=== PATIENT | female | born 1950 | race Caucasian/White ===

== ENCOUNTER 2025-06-10 12:15 | Observation (INO) | payer OTHER ==
[~2025-06-10] VITALS: Ht 154.9 cm; Wt 62.4 kg
--- NOTE | 2025-06-10 12:59 | ERN ---
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 Patient was placed on a loop recorder by engineering technical analyst. Per patient she noticed two days ago that the loop recorder was coming out. Allergies: Coded Allergies: codeine (Unverified Allergy, Unknown, 06/10/25) latex (Unverified Allergy, Unknown, 06/10/25) Past Medical History Past Medical History: Other Medical History Other: cardiac loop recorder, stents Past Surgical History: Hysterectomy, Other Surgical History Other: cardiac loop recorder, back sx ROS Dictation CONSTITUTIONAL: No chills, no fever, no weakness, no diaphoresis, no malaise. HEAD/FACE: No signs of trauma. EENT: No eye pain, no blurred vision, no tearing, no double vision, no ear pain, no ear discharge, no nose pain, no nasal congestion, no throat pain, no throat swelling, no mouth pain. RESPIRATORY: No cough, no orthopnea, no SOB, no stridor, no wheezing. CARDIOVASCULAR: No chest pain, no edema, no palpitations, no syncope. GASTROINTESTINAL/ABDOMINAL: No abdominal pain, no constipation, no diarrhea, no nausea, no vomiting. GENITOURINARY: No abnormal discharge, no dysuria, no frequent urination, no hematuria. No complaints of pain in the genitals. MUSCULOSKELETAL: No back pain, no gout, no joint pain, no joint swelling, no muscle pain, no muscle stiffness, no neck pain. INTEGUMENTARY: No change in color, no change in hair/nails, no dryness, no lesion, no lumps, no rash. NEUROLOGICAL/PSYCH: No anxiety, not depressed, no emotional problem, no headache, no numbness, no pre-existing deficit, no history of seizures, no tremors, no weakness. HEMATOLOGIC/LYMPHATIC: Not anemic, no history of blood clots, no apparent bleeding, no bruising, glands not swollen. All Systems Negative, Except as Noted. Physical Exam Physical Exam Dictation VITAL SIGNS: Reviewed. GENERAL APPEARANCE: Alert, oriented x3, no acute distress, obese. HEAD AND FACE: Non-traumatic. EYES: PERRL, pink conjunctivas, eyelid no trauma, anterior chamber clear. EARS: Pinnas intact and no signs of trauma or erythema. Ear canals clear and no discharge. TMs no erythema. NOSE: No discharge, no bleeding. OROPHARYNX: Mouth normal, teeth no caries, tongue pink. Pharynx clear, no erythema. Tonsils no exudates, no abscesses noted. Mucous membrane moist. NECK: Supple, non-tender, no thyromegaly, no masses, no JVD, no bruits. BREAST: Deferred. CHEST: No tenderness, no crepitus, no paradoxical movement, no retractions. LUNGS: Clear, well-ventilated, symmetric, no rales, no wheezing, no rhonchi, no stridor, good breath sounds bilaterally. HEART: Regular rate, regular rhythm, no murmur, no gallops. VASCULAR: No peripheral edema. ABDOMEN: Soft, positive bowel sounds, nondistended, no guarding, nontender, no rebound, no masses no hepatomegaly, no splenomegaly, no Boo's sign, no hernias. RECTAL: Deferred. GENITAL: Deferred. NEUROLOGICAL: Normal speech, gross motor function intact, gross sensory function intact. MUSCULOSKELETAL: Neck nontender, full range of motion, back nontender, full range of motion. EXTREMITIES: Nontender, full range of motion. SKIN: Color pink, dry, no turgor, no rash, loop recorder partially protruding from the left side of the chest LYMPHATICS: Deferred. Results Laboratory and Microbiology Lab and Micro Result Laboratory Tests Test 06/10/25 13:20 White Blood Count 5.2 K/uL (4.8-10.8) Red Blood Count 3.57 MIL/uL (4.00-5.50) L Hemoglobin 10.7 g/dL (12.0-16.0) L Hematocrit 33.4 % (36-48) L Mean Corpuscular Volume 93.6 fL (79-99) Mean Corpuscular Hemoglobin 30.0 pg (27.0-33.0) Mean Corpuscular Hemoglobin Concent 32.0 g/dL (32.0-36.0) Red Cell Distribution Width 13.9 % (11.0-15.5) Platelet Count 252 K/uL (130-400) Mean Platelet Volume 9.9 fL (7.5-10.5) Immature Granulocyte % (Auto) 0.2 % (0-1) Neutrophils (%) (Auto) 56.0 % (40.0-77.0) Lymphocytes (%) (Auto) 28.7 % (21.0-51.0) Monocytes (%) (Auto) 10.8 % (3.0-13.0) Eosinophils (%) (Auto) 3.5 % (0.0-8.0) Basophils (%) (Auto) 0.8 % (0.0-5.0) Neutrophils # (Auto) 2.9 K/uL (1.8-7.7) Lymphocytes # (Auto) 1.5 K/uL (1.0-4.8) Monocytes # (Auto) 0.6 K/uL (0.1-1.0) Eosinophils # (Auto) 0.18 K/uL (0.00-0.70) Basophils # (Auto) 0.04 K/uL (0.00-0.20) Absolute Immature Granulocyte (auto 0.01 K/uL (0-1) Nucleated Red Blood Cells 0.0 % (0.0-0.19) Sodium Level 140 mmol/L (136-145) Potassium Level 4.1 mmol/L (3.5-5.1) Chloride Level 106 mmol/L (101-111) Carbon Dioxide Level 26 mmol/L (21-32) Blood Urea Nitrogen 27 mg/dL (7-18) H Creatinine 0.7 mg/dL (0.5-1.0) Glomerular Filtration Rate Calc 90 mL/min (>90) Random Glucose 84 mg/dL (70-105) Total Calcium 8.9 mg/dL (8.5-10.1) Labs Reviewed?: Yes EKG/XRAY/US/CT/MRI X-RAY Comment [id number] [address] IMAGING REPORT Signed PATIENT: CRISTAL NEVILLE MR#: [id number] : 1950 SEX: F AGE: 74 LOCATION: ED ORDER 1250 STATUS: REG ER REPORT#: [id number] SERVICE [id number] REASON: cp ORDERING PHYSICIAN: ALEXNADER RUEDA MD PROCEDURE: CXR1VW - CHEST 1VW EXAM: CR Chest, 1 View. CLINICAL HISTORY: cp COMPARISON: None provided. FINDINGS: LUNGS: The lungs show no infiltrate or other acute finding. Mild bibasilar airspace disease may reflect atelectasis. PLEURAL SPACES: No evidence of pleural effusion or pneumothorax. MEDIASTINUM: Rhythm monitoring device overlies the cardiac silhouette. The cardiomediastinal silhouette is within normal limits. Presumed prior coronary artery stenting. BONES: No aggressive appearing osseous lesion seen. IMPRESSION: 1. No acute cardiopulmonary findings. /[place] DICTATED BY: FIONA LYNCH Jr., MD DATE: 06/10/251419 ELECTRONICALLY SIGNED BY: FIONA LYNCH Jr., MD DATE: 06/10/251419 [facility] MDM: Differential diagnosis: Loop recorder problem, loop recurrent protruding Rationale: Tests considered and ordered secondary to shared decision making include: labs, ECG and radiology Previous outside records reviewed: Old ER visits. Risk of complication and/or morbidity or mortality of patient management: None Medications-Per medication reconciliation Need for hospitalization: Patient does meet criteria for hospitalization. Need for emergency major/minor surgery: No There are no social concerns with this patient. Prescription drug management Prescriptions will include symptomatic care Patient's prior external medical records from other ER visits were reviewed by me as indicated. Prior testing and results from previous visits were reviewed. Prior tests were taken into account with medical decision making and resource utilization, independent historian/historians were used to obtain complete medical history. I independently interpreted the test that were performed, results were reviewed by me and considered findings on radiology if ordered. Medical management and examination interpretation discussions were had by me with other qualified healthcare professionals as indicated for the patient's care. Patient will be admitted under the care of hospitalist group for ongoing evaluation and management. Ready [employer] Department Manager Dr. Chopra that has consulted ED Course Orders Procedure Category Date Status Time Cbc With Differential LAB 06/10/25 Complete 12:47 Chest 1vw RAD 06/10/25 Resulted 12:47 12 Lead Ekg Tracing- EKG 06/10/25 Logged Technical 12:47 Troponin I High LAB 06/10/25 In Process Sensitivity 12:47 Basic Metabolic Panel LAB 06/10/25 Complete 12:47 Anaerobic Culture ISA 06/10/25 In Process 12:47 Aerobic Culture ISA 06/10/25 In Process 12:47 Lidocaine Hcl 1% 20ml PHA 06/10/25 Complete Vial (Lidocaine Hc 12:49 Ceftriaxone 1g Vial PHA 06/10/25 Complete (Rocephine 1g Inj) 13:30 Current Medications Medications (Trade) Dose Ordered Sig/Mariah Route PRN Reason Start Time Stop Time Status Last Admin Dose Admin Ceftriaxone Sodium (ROCEphine 1G INJ) 1 gm ONCE ONCE IVPB 06/10/25 13:30 06/10/25 13:31 DC 06/10/25 13:34 Lidocaine HCl (Lidocaine HCl 1% 20ml Vial) 20 ml ONCE STAT INJ 06/10/25 12:49 06/10/25 12:54 DC Vital Signs Date Time Temp Pulse Resp B/P (MAP) Pulse Ox O2 Delivery O2 Flow Rate FiO2 06/10/25 13:29 98.6 67 12 133/78 98 Room Air* 0 21 06/10/25 12:26 97.9 66 16 128/87 98 Room Air* 0 21 06/10/25 12:24 97.9 66 16 128/87 98 Room Air 0 Procedure Dictation And a sterile environment- a loop recorder present on the left side of the chest partially protruding was cleaned and anesthetized using lidocaine 1%. 5 mL were used. Good anesthesia achieved. Gently retracting of the loop recorder was carried out success. Wound was cultured and packed with iodoform gauze. DX & DISP Disposition: Inpatient Decision to Admit Time: 13:38 Departure Impression: Primary Impression: Encounter for loop recorder check Condition: Stable Referrals: SELF,REFERRAL (PCP) ALEXANDER RUEDA MD Jun 10, 2025 12:58
--- NOTE | 2025-06-10 13:21 | HMCIMG ---
EXAM: CR Chest, 1 View. CLINICAL HISTORY: cp COMPARISON: None provided. FINDINGS: LUNGS: The lungs show no infiltrate or other acute finding. Mild bibasilar airspace disease may reflect atelectasis. PLEURAL SPACES: No evidence of pleural effusion or pneumothorax. MEDIASTINUM: Rhythm monitoring device overlies the cardiac silhouette. The cardiomediastinal silhouette is within normal limits. Presumed prior coronary artery stenting. BONES: No aggressive appearing osseous lesion seen. IMPRESSION: 1. No acute cardiopulmonary findings. /[place]
[2025-06-10 13:29] LABS: IMMATURE GRANULOCYTE ABSOLUTE 0.01 K/uL (0-1); NUCLEATED RED BLOOD CELLS 0.0 % (0.0-0.19); PLATELET COUNT (AUTO) 252 K/uL (130-400); RED BLOOD CELL COUNT(AUTO) 3.57 MIL/uL (4.00-5.50); RED CELL DISTRIBUTION WIDTH 13.9 % (11.0-15.5); WHITE BLOOD COUNT (AUTO) 5.2 K/uL (4.8-10.8)
--- NOTE | 2025-06-10 13:30 | NUR ---
1310 DR. RUEDA AT BEDSIDE, REMOVAL OF LOOP RECORDER PT TOLERATED WELL, NO C/O PAIN TO SITE NO DISTRESS, VITALS WNL. PT GIVEN LOOP RECORDER DEVICE, PLACED IN STERILE CONTAINER.
[2025-06-10 13:35] LABS: CREATININE 0.7 mg/dL (0.5-1.0); GLOMERULAR FILTR. RATE CALC 90.0 mL/min (>90); GLUCOSE,RANDOM 84.0 mg/dL (70-105); SODIUM SERUM 140.0 mmol/L (136-145); UREA NITROGEN, BLOOD 27.0 mg/dL (7-18)
[2025-06-10] MEDS: LIDOCAINE HCL 1% 20 ML VIAL INJ STA (13:41)
--- NOTE | 2025-06-10 13:44 | CONS ---
Cardiology Consult Note Cardiology Attending: Ragini Osborn Consulting Physician: ED physician Date of Service: 06/10/25 Reason for Consult: Protruding loop recorder HPI: This is a 74-year-old female with a past medical history of CAD status post PCI to the LAD done in 2021, coronary CTA which identified a patent stent in the proximal LAD, nonobstructive CAD in the proximal LCx, paroxysmal atrial fibrilla tion status post ablation done in 1998, normal left ventricle systolic function (LVEF 55-60%), HLP, HTN, and hypothyroidism who presents with a loop recorder that is protruding through her skin and is open to air. The patient states that she underwent loop recorder placement on 04/05/2025 and that the surgical site never truly heal. She was advised to continue wearing a Steri-Strip on top of the incision site in order to allow to heal. She removed the Steri-Strips on Friday and noticed that the loop recorder was protruding through her skin. She subsequently called our office and was advised to come to the hospital for further evaluation and treatment. She complains of mild pain centered around the loop recorder site. She denies fever, chills, headache, dizziness, cardiac chest pain, chest pressure, palpitations, shortness or breath, PND, orthopnea, abdominal pain, or weight gain. PMH: Listed above PSH: Tonsillectomy, breast implants, weight loss surgery, back surgery FH: Significant for CAD, HTN, and DMII. SH: Denies alcohol, tobacco, or illicit drug use. Medications: Folic acid 1 mg daily, aspirin 81 mg daily, Farxiga 10 mg daily, Ezetimibe 10 mg daily, amlodipine 2.5 mg daily, levothyroxine 125 mcg daily, pantoprazole 40 mg daily, clopidogrel 75 mg daily, metoprolol succinate 25 mg daily Allergies: Coded Allergies: codeine (Unverified Allergy, Unknown, 06/10/25) latex (Unverified Allergy, Unknown, 06/10/25) Review of systems: General: Denies fever or chills HEENT: Denies changes in vision, earache or sore throat Neck: Denies pain or stiffness Cardio: As per the HPI Pulm: Denies SOB, coughing or wheezing GI: Denies abdominal pain, nausea, vomiting, diarrhea, or constipation. MSK: Denies muscle or back pain. Heme: Denies anemia, easy bruising, or bleeding. Neuro: Denies headache, dizziness, or syncope. Skin: As per the HPI. Psych: Denies anxiety, depression, or suicide ideations. Physical Exam: Vital Signs Date Time Temp Pulse Resp B/P (MAP) Pulse Ox O2 Delivery O2 Flow Rate FiO2 06/10/25 12:26 97.9 66 16 128/87 98 Room Air* 0 21 General: Alert and oriented x 3. NAD HEENT: NC/AT. Oral mucosa is moist. Neck: No masses, JVD, or carotid bruits Lungs: NRD. SCM. B/L CTA. No wheezing, rales or rhonchi. Cardio: Rate @ 66bpm. Normal S1 and S2. +S4. PMI was not displaced. Abdomen: Soft. NT. ND. Normal active bowel sounds x 4 quadrants. Extremities: No edema, clubbing or cyanosis. +2 pulses noted throughout. Neuro: CN II-XII were grossly intact. No focal deficits. Skin: There is a loop recorder, that is left of the midline and is protruding through the epidermis and is exposed to air. There is mild erythema around the loop recorder Labs: Laboratory Tests Test 06/10/25 13:20 Range/Units White Blood Count 5.2 4.8-10.8 K/uL Red Blood Count 3.57 L 4.00-5.50 MIL/uL Hemoglobin 10.7 L 12.0-16.0 g/dL Hematocrit 33.4 L 36-48 % Mean Corpuscular Volume 93.6 79-99 fL Mean Corpuscular Hemoglobin 30.0 27.0-33.0 pg Mean Corpuscular Hemoglobin Concent 32.0 32.0-36.0 g/dL Red Cell Distribution Width 13.9 11.0-15.5 % Platelet Count 252 130-400 K/uL Mean Platelet Volume 9.9 7.5-10.5 fL Immature Granulocyte % (Auto) 0.2 0-1 % Neutrophils (%) (Auto) 56.0 40.0-77.0 % Lymphocytes (%) (Auto) 28.7 21.0-51.0 % Monocytes (%) (Auto) 10.8 3.0-13.0 % Eosinophils (%) (Auto) 3.5 0.0-8.0 % Basophils (%) (Auto) 0.8 0.0-5.0 % Neutrophils # (Auto) 2.9 1.8-7.7 K/uL Lymphocytes # (Auto) 1.5 1.0-4.8 K/uL Monocytes # (Auto) 0.6 0.1-1.0 K/uL Eosinophils # (Auto) 0.18 0.00-0.70 K/uL Basophils # (Auto) 0.04 0.00-0.20 K/uL Absolute Immature Granulocyte (auto 0.01 0-1 K/uL Nucleated Red Blood Cells 0.0 0.0-0.19 % Assessment: 1. Wound dehiscence 2. Protruding loop recorder 3. CAD status post PCI to the LAD done in 2021 4. Coronary CTA which identified a patent stent in the proximal LAD, nonobstructive CAD in the proximal LCx 5. Paroxysmal atrial fibrillation status post ablation done in 1998 6. Normal left ventricle systolic function (LVEF 55-60%) 7. HLP 8. HTN 9. Hypothyroidism Plan: 1. Wound adhesions -Stable -PE: There is a loop recorder, that is left of the midline and is protruding through the epidermis and is exposed to air. There is mild erythema around the loop recorder -Recommend bedside removal of the loop recorder. The case was discussed with Dr. Ross, ER physician and he will remove the device at the bedside. -Once the device has been removed we recommend obtaining cultures from the pocket, obtaining blood cultures/ESR/CRP levels, and starting the patient on broad-spectrum antibiotics 2. CAD status post PCI to the LAD done in 2021 -stable -the patient denies cardiac chest pain, chest pressure, palpitations, or shortness of breath -the above-mentioned findings indicate clinical stability, as a result the patient will continue on metoprolol succinate 25 mg daily, aspirin 81 mg daily, clopidogrel 75 mg daily, ezetimibe 10 mg daily 3. HTN -stable -continue amlodipine 2.5 mg daily. Likely discharge within the next 24 hours. RAGINI OSBORN MD Jun 10, 2025 13:44
--- NOTE | 2025-06-10 14:00 | NUR ---
HOSPITALIST AT BEDSIDE
[2025-06-10] MEDS ORDERED: NITROGLYCERIN 0.4 MG SL TAB SL PRN (14:30)
[2025-06-10] MEDS ORDERED: LACTULOSE 20 GM/30 ML UDCUP PO PRN (14:30)
--- NOTE | 2025-06-10 14:32 | HP ---
[facility] HISTORY [facility] PHYSICAL Date of Service: Jun 10, 2025 Time of Service: 14:32 HISTORY OF PRESENT ILLNESS: The patient is a 74-year-old female with a history of hypertension, hypercholesterolemia, hypothyroidism, and CAD s/p angioplasty in 2021 presented to the emergency department for evaluation of a dislodged loop recorder. The loop recorder was implanted on April 05, [address] Thanh Oshea for monitoring intermittent chest pain radiating to both sides of her neck. The patient reports that the surgical site never fully healed. Yesterday, she removed the steri-strip from the area, looked herself in the mirror and noticed that the device appeared to be protruding through the skin. She is unsure how long it had been dislodged. This morning, while gardening, she experienced sweating around the site along with a burning sensation. She contacted the [facility], and her rim fire priming operator expressed concern for possible infection and advised her to go to the emergency department for evaluation and potential device removal. On presentation, the patients vital signs were stable and unremarkable. Initial laboratory studies were within normal limits. The emergency department physician successfully removed the loop recorder, obtained wound cultures, and applied a sterile dressing. She denies fever, chills, headache, dizziness, cardiac chest pain, chest pressure, palpitations, shortness or breath, PND, orthopnea, abdominal pain, or weight gain. The patient was also evaluated by rim fire priming operator Dr. Osborn in the ED. Dr. Osborn recommended that the patient be observed closely for any signs of infection at the loop recorder site. Wound site was inspected and findings are listed below. Wound cultures were obtained for both aerobic and anaerobic organisms. The patient received a dose of intravenous Rocephin in the emergency department. She will be admitted for continued monitoring of the affected site following device protrusion. REVIEW OF SYSTEMS CONSTITUTIONAL: Denies fevers, chills, or night sweats. No unintentional weight loss reported. NEUROLOGICAL: Denies headache, amaurosis fugax, motor weakness, sensory deficit, vertigo/spinning sensation, gait abnormalities, or tremors. ENT: No hearing loss, otalgia, otorrhea, rhinitis, rhinorrhea, hoarseness, or sore throat. CARDIOVASCULAR: Denies any exertional angina, dyspnea on exertion, orthopnea, paroxysmal nocturnal dyspnea, palpitations, life-threatening arrhythmias, claudication. PULMONARY: Denies any shortness of breath, cough, phlegm/sputum, hemoptysis, pleuritic chest pain. SLEEP: Denies morning headaches, daytime somnolence or napping. Denies difficulty falling asleep, staying asleep, waking from sleep. Denies knowledge of snoring. GASTROINTESTINAL: Denies any type of dysphagia to either liquids or solids. Denies nausea, vomiting, pyrosis, early satiety, abdominal pain, diarrhea, constipation, or changes in stool consistency or caliber. Denies coffee-ground emesis, hematemesis, hematochezia, or melanotic stools. GENITOURINARY: Denies frequency, urgency, nocturia, hematuria or incontinence (Storage/Irritative symptoms.) Low urinary stream, straining to void, urinary intermittency or hesitancy, splitting of the voiding stream, terminal dribbling. ENDOCRINOLOGIC: Denies polyuria, polydipsia, polyphagia or heat/cold intolerances. HEMATOLOGIC: Denies thrombophilia/previous clots, or coagulopathy/bleeding disorders. ONCOLOGIC: Denies personal history of malignancy. DERMATOLOGIC: Denies rashes or pruritus. PSYCHIATRIC: Denies any suicidal or homicidal ideation. Denies hallucinations. PAST MEDICAL HISTORY: Hypertension Hypercholesterolemia Hypothyroidism CAD s/p PCI in 2021 PAST SURGICAL HISTORY: H/o back surgery 3 years ago Tonsillectomy Hysterectomy Hernia repair Weight loss surgery Breast implant surgery PAST SOCIAL HISTORY: Denies smoking, Drinks alcohol socially FAMILY HISTORY: Brother- H/o aortic aneurysm Coded Allergies: codeine (Unverified Allergy, Unknown, 06/10/25) latex (Unverified Allergy, Unknown, 06/10/25) PHYSICAL EXAM GENERAL APPEARANCE: The patient is awake, alert, and oriented, in no acute cardiopulmonary distress. NEUROLOGICAL: Cranial nerves II-XII grossly intact. Motor is 5/5 in bilateral upper and lower extremities proximal to distal. No sensory deficits. HEENT: Face is symmetric. Pupils are equal and reactive. Extraocular movements are intact. NECK: Supple. No JVD. No thyromegaly. No submental, submandibular, pre-/post auricular, occipital or supraclavicular lymphadenopathy. CHEST: Normal chest expansion. No Telemetry. LUNGS: Absence of any rales, rhonchi or any wheezing. CARDIOVASCULAR: Regular. S1 and S2 normal. No appreciable rubs, murmurs or gallops. ABDOMEN: Soft, nontender, and nondistended. There is no rebound, voluntary guarding, or rigidity. : Deferred. No Doe. EXTREMITIES: Non-edematous and not cyanotic. No clubbing. Good capillary refill. Skin/Wound: Over the anterior chest, there is a small wound at the site of recent loop recorder placement. Site appears clean, with no significant erythema, purulent drainage, or fluctuance. Mild surrounding tenderness. No systemic signs of infection noted at this time. Vital Sign (Last 24 Hours) 06/10/25 13:29 Temp 98.6 Pulse 67 Resp 12 B/P (MAP) 133/78 Pulse Ox 98 O2 Delivery Room Air* O2 Flow Rate 0 FiO2 21 LABS: Laboratory: Test 06/10/25 13:20 Range/Units White Blood Count 5.2 4.8-10.8 K/uL Red Blood Count 3.57 L 4.00-5.50 MIL/uL Hemoglobin 10.7 L 12.0-16.0 g/dL Hematocrit 33.4 L 36-48 % Mean Corpuscular Volume 93.6 79-99 fL Mean Corpuscular Hemoglobin 30.0 27.0-33.0 pg Mean Corpuscular Hemoglobin Concent 32.0 32.0-36.0 g/dL Red Cell Distribution Width 13.9 11.0-15.5 % Platelet Count 252 130-400 K/uL Mean Platelet Volume 9.9 7.5-10.5 fL Immature Granulocyte % (Auto) 0.2 0-1 % Neutrophils (%) (Auto) 56.0 40.0-77.0 % Lymphocytes (%) (Auto) 28.7 21.0-51.0 % Monocytes (%) (Auto) 10.8 3.0-13.0 % Eosinophils (%) (Auto) 3.5 0.0-8.0 % Basophils (%) (Auto) 0.8 0.0-5.0 % Neutrophils # (Auto) 2.9 1.8-7.7 K/uL Lymphocytes # (Auto) 1.5 1.0-4.8 K/uL Monocytes # (Auto) 0.6 0.1-1.0 K/uL Eosinophils # (Auto) 0.18 0.00-0.70 K/uL Basophils # (Auto) 0.04 0.00-0.20 K/uL Absolute Immature Granulocyte (auto 0.01 0-1 K/uL Nucleated Red Blood Cells 0.0 0.0-0.19 % Sodium Level 140 136-145 mmol/L Potassium Level 4.1 3.5-5.1 mmol/L Chloride Level 106 101-111 mmol/L Carbon Dioxide Level 26 21-32 mmol/L Blood Urea Nitrogen 27 H 7-18 mg/dL Creatinine 0.7 0.5-1.0 mg/dL Glomerular Filtration Rate Calc 90 >90 mL/min Random Glucose 84 70-105 mg/dL Total Calcium 8.9 8.5-10.1 mg/dL Troponin I High Sensitivity 5 4-50 ng/L Current Medications Medications (Trade) Dose Ordered Sig/Mariah Route PRN Reason Start Time Stop Time Status Last Admin Dose Admin Acetaminophen (TYLenol 325MG TAB) 650 mg Q4H PRN PO MILD PAIN (1-3) 06/10/25 14:30 07/10/25 14:29 Acetaminophen (TYLenol 325MG TAB) 650 mg Q6H PRN PO TEMPERATURE GREATER THAN 101.5 06/10/25 14:30 07/10/25 14:29 Doxycycline Hyclate (Doxycycline Hyclate) 100 mg BID PO 06/10/25 14:30 06/20/25 14:29 UNV Famotidine (Pepcid 20mg Tab) 20 mg BID PO 06/10/25 21:00 07/10/25 20:59 Lactulose (Constulose 20gm/ 30ml Udcup) 20 gm BID PRN PO CONSTIPATION 06/10/25 14:30 07/10/25 14:29 Lidocaine HCl (Lidocaine HCl 1% 20ml Vial) 20 ml ONCE STAT INJ 06/10/25 12:49 06/10/25 12:54 DC 06/10/25 13:41 20 ML Nitroglycerin (Nitrostat) 0.4 mg PROTOCOL PRN SL CHEST PAIN 06/10/25 14:30 07/10/25 14:29 DIAGNOSTICS / RADIOLOGY: [facility] [address] [place] [address] IMAGING REPORT Signed PATIENT: CRISTAL NEVILLE MR#: [id number] : 1950 SEX: F AGE: 74 LOCATION: ED ORDER 125 STATUS: REG ER REPORT#: [id number] SERVICE 1247 REASON: cp ORDERING PHYSICIAN: ALEXANDER RUEDA MD PROCEDURE: CXR1VW - CHEST 1VW EXAM: CR Chest, 1 View. CLINICAL HISTORY: cp COMPARISON: None provided. FINDINGS: LUNGS: The lungs show no infiltrate or other acute finding. Mild bibasilar airspace disease may reflect atelectasis. PLEURAL SPACES: No evidence of pleural effusion or pneumothorax. MEDIASTINUM: Rhythm monitoring device overlies the cardiac silhouette. The cardiomediastinal silhouette is within normal limits. Presumed prior coronary artery stenting. BONES: No aggressive appearing osseous lesion seen. IMPRESSION: 1. No acute cardiopulmonary findings. /[place] DICTATED BY: FIONA LYNCH Jr., MD DATE: 06/10/251419 ELECTRONICALLY SIGNED BY: FIONA LYNCH Jr., MD DATE: 06/10/251419 ASSESSMENT: Wound dehiscence POA Dislodged and protruding loop recorder POA s/p removal CAD S/p coronary angioplasty in 2021 POA Hypertension POA Hypothyroidism POA Hypercholesterolemia POA PLAN: The patient will be admitted on medical surgical floor. Wound dehiscence POA Dislodged and protruding loop recorder POA s/p removal * Start doxycycline 100 mg PO BID for empirical MRSA coverage. * Continue to monitor for signs of local or systemic infection. * Await results of aerobic and anaerobic wound cultures to guide further antibiotic management. * Wound care team consulted for inpatient dressing recommendations and discharge planning for wound care. * Continue daily assessment of wound site during hospitalization. CAD S/p coronary angioplasty in 2021 POA * The patient denies any cardiac symptoms. Continue with Aspirin 81 mg and Clopidogrel 75 mg daily. Hypertension POA * Continue with Amlodipine 2.5 and Metoprolol 25 mg daily. Home medications were reconciled and resumed. Replace electrolytes per protocol PRN medications for fever, pain GI Prophylaxis: Famotidine 20 mg PO BID DVT Prophylaxis: SCDs today, if tomorrow after assessment the patient requires longer hospitalization, can be started with heparin/Lovenox. AM Labs: CBC, BMP The patient will be closely monitored for any signs of developing infection at the loop recorder site. Wound culture results are pending. If she remains clinically stable, she may be discharged within 2448 hours with a course of oral antibiotics. ADVANCED CARE PLANNING 1. Which of the following were discussed? Hospice Care - Yes / No Therapeutic options - Yes / No Advance Directives - Yes / No 2. Discussed with who? The patient 3. Voluntary nature of this service was explained to the patient? Yes / No 4. Amount of time spent - ___20 minutes____ 5. Reviewed by Physician? Yes / No ATTESTATION BY PHYSICIAN I have seen and examined the patient. I reviewed the documentation, medical decision making, and treatment plan as noted by the resident provider above. I agree with the findings and plan of care. Brandon Reyna MD, MANALI MD Jun 10, 2025 14:32
--- NOTE | 2025-06-10 14:43 | NUR ---
CALLED WOUND CARE OFFICE FOR CONSULT NO ANSWER.
[2025-06-10] MEDS ORDERED: PANT40TA54 PO (14:53)
[2025-06-10] MEDS ORDERED: DAPA10TA PO (14:53)
[2025-06-10] MEDS ORDERED: EZET10TA80 PO (14:53)
[2025-06-10] MEDS ORDERED: CLOP75TA32 PO (14:53)
[2025-06-10] MEDS ORDERED: AMLO2.5T4 PO (14:53)
[2025-06-10] MEDS ORDERED: METO-408 PO (14:53)
[2025-06-10] MEDS ORDERED: ASPI-1443 PO (14:53)
[2025-06-10] MEDS ORDERED: LEVO112C5 PO (14:53)
[2025-06-10] MEDS: DOXYCYCLINE HYCLATE 100 MG TABLET PO SCH (14:57)
--- NOTE | 2025-06-10 15:05 | NUR ---
CHARGE NURSE RECEIVED REPORT FROM HUMA SULTANA. REPORT PASSED ON TO ME FROM CHARGE NURSE. PATIENT ARRIVED TO THE UNIT NO SIGNS AND SYMPTOMS OF DISTRESS NOTED. WOUND CARE CENTER PAGED BUT NO ANSWER.
[2025-06-10 15:30] VITALS: BP 124/76; PULSE 80; RESP 21; TEMP 97.8; O2SAT 99
[2025-06-10 15:31] VITALS: O2SAT 99
[2025-06-10 20:00] VITALS: BP 129/84; PULSE 90; RESP 20; TEMP 98.2
[2025-06-10 20:50] VITALS: O2SAT 97
[2025-06-10] MEDS: FAMOTIDINE 20MG TAB PO SCH (20:55)
[2025-06-10] MEDS ORDERED: TRAM50TA4 PO (21:25)
[2025-06-10] MEDS ORDERED: PoTASSium chloRIDE 20MEQ ER 20 MEQ ERTAB PO PRN (23:00)
[2025-06-10] MEDS ORDERED: PoTASSium chl 10% ELIXIR 20MEQ 20 MEQ/15 ML UDCUP PO PRN (23:00)
[2025-06-11] VITALS: BP 134/86; PULSE 66; RESP 20; TEMP 97.6
[2025-06-11 04:00] VITALS: BP 115/70; PULSE 63; RESP 20; TEMP 98.1
[2025-06-11 05:19] LABS: NUCLEATED RED BLOOD CELLS 0.0 % (0.0-0.19); PLATELET COUNT (AUTO) 223.0 K/uL (130-400); RED BLOOD CELL COUNT(AUTO) 3.55 MIL/uL (4.00-5.50); RED CELL DISTRIBUTION WIDTH 13.7 % (11.0-15.5); WHITE BLOOD COUNT (AUTO) 4.0 K/uL (4.8-10.8)
[2025-06-11 05:33] LABS: CREATININE 0.9 mg/dL (0.5-1.0); GLOMERULAR FILTR. RATE CALC 67.0 mL/min (>90); GLUCOSE,RANDOM 81.0 mg/dL (70-105); SODIUM SERUM 137.0 mmol/L (136-145); UREA NITROGEN, BLOOD 22.0 mg/dL (7-18)
[2025-06-11 08:00] VITALS: BP 135/76; PULSE 59; RESP 18; TEMP 97.9
[2025-06-11] MEDS: EZETIMIBE 10 MG TAB PO SCH (09:08)
[2025-06-11] MEDS: amLODIPine 2.5 MG TAB PO SCH (09:09)
[2025-06-11] MEDS: ASPIRIN 81 MG EC TAB PO SCH (09:09)
--- NOTE | 2025-06-11 09:20 | NUR ---
IV ACCESS INFILTRATED. PATIENT DOES NOT WANT ANOTHER IV ACCESS. PATIENT STATED "I'M GOING HOME TODAY WHETHER THE DOCTORS LIKE IT OR NOT." EDUCATED THE PATIENT ON THE IMPORTANCE OF HAVING AN IV ACCESS IN CASE OF EMERGENCY SITUATIONS. PATIENT STILL REFUSES ACCESS. REFUSAL FORM SIGNED AND IN THE CHART.
[2025-06-11] MEDS ORDERED: ZOSYN 3.375GM +NS 50ML IVPB SCH (10:00)
--- NOTE | 2025-06-11 11:03 | EKG ---
[facility] Test Date: 2025-06-10 Test Time: 13:32:32 Pat Name: CRISTAL NEVILLE Department: [facility] Room: 415 1 Gender: F Log Peeler: [id number] : 1950 Requested By: ALEXANDER RUEDA Order Number: [id number] Reading MD: Nav Osborn Measurements Intervals [place] Rate: 63 P: 51 [place]: 198 QRS: -28 QRSD: 100 T: 30 QT: 441 QTc: 453 Interpretive Statements Sinus rhythm LVH with secondary repolarization abnormality Lateral infarct, age indeterminate No previous ECG available for comparison Electronically Signed On 06-12-2025 23:58:49 CDT by Nav Osborn Please click the below link to view image of tracing.
[2025-06-11 12:00] VITALS: BP 121/77; PULSE 55; RESP 18; TEMP 97.6
[2025-06-11] MEDS ORDERED: DOXYCYCLINE HYCLATE 100 MG TABLET PO SCH (12:00)
--- NOTE | 2025-06-11 13:20 | CONS ---
CONSULTATION NOTE Date of Service: Jun 11, 2025 Reason for Consultation: Open surgical wound on the anterior chest Requesting Physician: Dr. Osborn HISTORY OF PRESENT ILLNESS: [ The patient is a 74-year-old female with a history of hypertension, hyperchol esterolemia, hypothyroidism, and CAD s/p angioplasty in 2021 presented to the emergency department for evaluation of a dislodged loop recorder. The loop recorder was implanted on April 05, [address] Thanh Oshea for monitoring intermittent chest pain radiating to both sides of her neck. The patient reports that the surgical site never fully healed. Yesterday, she removed the steri-strip from the area, looked herself in the mirror and noticed that the device appeared to be protruding through the skin. She is unsure how long it had been dislodged. This morning, while gardening, she experienced sweating around the site along with a burning sensation. She contacted the [facility], and her mica sizer expressed concern for possible infection and advised her to go to the emergency department for evaluation and potential device removal. On presentation, the patients vital signs were stable and unremarkable. Initial laboratory studies were within normal limits. The emergency department physician successfully removed the loop recorder, obtained wound cultures, and applied a sterile dressing. She denies fever, chills, headache, dizziness, cardiac chest pain, chest pressure, palpitations, shortness or breath, PND, orthopnea, abdominal pain, or weight gain. The patient was also evaluated by mica sizer Dr. Osborn in the ED. Dr. Osborn recommended that the patient be observed closely for any signs of infection at the loop recorder site. Wound site was inspected and findings are listed below. Wound cultures were obtained for both aerobic and anaerobic organisms. The patient received a dose of intravenous Rocephin in the emergency department. She will be admitted for continued monitoring of the affected site following device protrusion. 06/11/2025 this is a 74-year-old female with history of multiple comorbidities seen at the bedside for initial wound care evaluation and management of an open surgical wound on the anterior chest between the breasts. Patient is status post removal of loop recorder. The surgical wound is clean with good granulation tissue no sign of infection, no periwound erythema, no purulent drainage noted. No tenderness to palpation. Patient is alert and cooperative she is not in acute distress. Wound care plan discussed with the patient and the primary nurse. They voiced understanding. REVIEW OF SYSTEMS CONSTITUTIONAL: Denies fever, chills, or fatigue. HEAD/FACE: No signs of trauma. EENT: Denies eye pain, blurred vision, double vision, or light sensitivity. RESPIRATORY: Denies shortness of breath, cough, wheezing CARDIOVASCULAR: Denies chest pain, palpitation, syncope GASTROINTESTINAL/ABDOMINAL: Denies abdominal pain, constipation, diarrhea, nausea or vomiting GENITOURINARY: Denies dysuria or hematuria. MUSCULOSKELETAL: Denies joint pain, tenderness, or trauma. INTEGUMENTARY: Denies rash or itchiness NEUROLOGICAL/PSYCH: Denies anxiety, depression, heat or cold intolerance. PAST MEDICAL HISTORY: Hypertension Hypercholesterolemia Hypothyroidism CAD s/p PCI in 2021 PAST SURGICAL HISTORY: H/o back surgery 3 years ago Tonsillectomy Hysterectomy Hernia repair Weight loss surgery Breast implant surgery PAST SOCIAL HISTORY: Denies smoking, Drinks alcohol socially FAMILY HISTORY: Brother- H/o aortic aneurysm Coded Allergies: codeine (Unverified Allergy, Unknown, 06/10/25) latex (Unverified Allergy, Unknown, 06/10/25) ] Coded Allergies: codeine (Unverified Allergy, Unknown, 06/10/25) latex (Unverified Allergy, Unknown, 06/10/25) PHYSICAL EXAM EYES: Anicteric. Pupils equal and reactive. HENT: No oral thrush seen, moist Oral mucosa NECK: Supple, no JVD or thyromegaly. LUNGS: Good air entry. No rales, no rhonchi. CARDIOVASCULAR: S1, S2 regular. No murmur heard. ABDOMEN: Soft, non tender, bowel sounds present, no organomegaly CENTRAL NERVOUS SYSTEM: Awake, alert, oriented x 3. No focal deficits. SKIN: Open surgical wound on the anterior chest between the breasts, status post removal of a loop recorder. The wound is clean with good granulation tissue no sign of infection, no purulent drainage noted. LYMPHATICS: No peripheral lymphadenopathy MUSCULOSKELETAL: No joint swelling, erythema or tenderness. EXTREMITIES: No cyanosis or clubbing BACK: No deformity, no pressure ulcer. GENITOURINARY: No dysuria or hematuria Vital Sign (Last 24 Hours) 06/10/25 06/11/25 20:50 12:00 Temp 97.5 Pulse 55 Resp 18 B/P (MAP) 121/77 Pulse Ox 96 O2 Delivery Room Air O2 Flow Rate 0 FiO2 21 LABS: Laboratory: Test 06/11/25 05:07 06/10/25 13:20 Range/Units White Blood Count 4.0 L 4.8-10.8 K/uL Red Blood Count 3.55 L 4.00-5.50 MIL/uL Hemoglobin 10.6 L 12.0-16.0 g/dL Hematocrit 32.3 L 36-48 % Mean Corpuscular Volume 91.0 79-99 fL Mean Corpuscular Hemoglobin 29.9 27.0-33.0 pg Mean Corpuscular Hemoglobin Concent 32.8 32.0-36.0 g/dL Red Cell Distribution Width 13.7 11.0-15.5 % Platelet Count 223 130-400 K/uL Mean Platelet Volume 9.6 7.5-10.5 fL Nucleated Red Blood Cells 0.0 0.0-0.19 % Sodium Level 137 136-145 mmol/L Potassium Level 4.0 3.5-5.1 mmol/L Chloride Level 104 101-111 mmol/L Carbon Dioxide Level 28 21-32 mmol/L Blood Urea Nitrogen 22 H 7-18 mg/dL Creatinine 0.9 0.5-1.0 mg/dL Glomerular Filtration Rate Calc 67 >90 mL/min Random Glucose 81 70-105 mg/dL Total Calcium 8.7 8.5-10.1 mg/dL Immature Granulocyte % (Auto) 0.2 0-1 % Neutrophils (%) (Auto) 56.0 40.0-77.0 % Lymphocytes (%) (Auto) 28.7 21.0-51.0 % Monocytes (%) (Auto) 10.8 3.0-13.0 % Eosinophils (%) (Auto) 3.5 0.0-8.0 % Basophils (%) (Auto) 0.8 0.0-5.0 % Neutrophils # (Auto) 2.9 1.8-7.7 K/uL Lymphocytes # (Auto) 1.5 1.0-4.8 K/uL Monocytes # (Auto) 0.6 0.1-1.0 K/uL Eosinophils # (Auto) 0.18 0.00-0.70 K/uL Basophils # (Auto) 0.04 0.00-0.20 K/uL Absolute Immature Granulocyte (auto 0.01 0-1 K/uL Erythrocyte Sedimentation Rate 14 0-30 MM/HR Troponin I High Sensitivity 5 4-50 ng/L C-Reactive Protein, Quantitative 1.10 0.5-3.0 mg/L DIAGNOSTICS / RADIOLOGY: [ ] Wound care assessment: Open surgical wound on the anterior chest initial visit. PROBLEM LIST : Medical Problems: (1) Encounter for loop recorder check ICD Codes: Z45.09 - Encounter for adjustment and management of other cardiac device PLAN: [ Clean the wound with normal saline or wound cleanser and pat dry. Apply gentamicin cream cover with dry dressing daily. Comorbidities per primary team. Balanced protein calorie intake to promote wound healing. Per primary nurse patient is going to be discharged today. Upon discharge to follow up at the [facility] at [facility]. Further management per hospital course. Thank you for the consultation and allowing me to participate in the care of your patient. LORENA DELACRUZ MD Jun 11, 2025 13:20
[2025-06-11] MEDS ORDERED: DOXY100T2 PO (13:24)
[2025-06-11] MEDS ORDERED: AMOX-426 PO (13:24)
--- NOTE | 2025-06-11 13:29 | DS ---
Discharge Summary Hospital Course Summary: Patient Information: *Name: Alvarez Lindsey *Date of : 48 *Admission Date:06/10/25 *Discharge Date: 06/11/25 Attending Physician: Dr Reyna Admitting Diagnosis: Dislodged Loop recorder Course in Hospital: Patient is a 74-year-old female with a past medical history of hypertension, hypercholesterolemia, coronary artery disease status post angioplasty in 2021 who presented to the emergency room for evaluation of a dislodged loop recorder. Patient was unsure how long the device had been dislodged. Vital signs on presentation were unremarkable as well as labs. Patient denied any fever, chills, headache, dizziness, chest pain or palpitations. Cardiology was consulted and the recommendation was made for removal of the loop recorder. Orders were also placed for blood cultures, ESR, CRP, and wound cultures. Plan was to start patient on broad-spectrum antibiotics and discharge within the next 24 hours. Patient received a dose of IV ceftriaxone in the emergency room and was admitted. Surgical wound remained clean with good granulation tissue and no signs of infection, no periwound erythema and no purulent drainage was noted. No tenderness as well. Patient remained afebrile, alert and oriented and in no obvious distress. Wound care MD saw the patient and wound care plans were discussed with the patient. Through the cause of her admission patient stated that she feels a lot better and would like to go home. Instructions were given to the patient to follow up with Cardiology and wound care after discharge for further evaluation and management. Patient verbalized understanding of instructions.Patient was sent home with Doxycycline 100mg bid x 7days, Aug mentin 500/125mg PO bid x 7days. Procedures performed: Removal of Loop recorder , CXR Medications on Discharge: Doxycycline 100mg bid x 7days, Augmentin 500/125mg PO bid x 7days Discharge Instructions: *Follow up with your primary care physician in 2 - 3 days after discharge. *Continue all medications as prescribed. Do not discontinue or change dosages without consulting your PCP. *Gradually resume normal activities as tolerated. *Continue a balanced diet . Reduce salt intake to help manage BP. *Seek immediate medical attention if you experience chest pain, SOB or severe headache. *Smoking cessation is strongly advised. Resources for quitting smoking are available upon request. Discharged to: Home Condition on Discharge: Stable Senior Sales Engineer(s): Wound care (Dr Otto) Clean the wound with normal saline or wound cleanser and pat dry. Apply gentamicin cream cover with dry dressing daily. Comorbidities per primary team. Balanced protein calorie intake to promote wound healing. Per primary nurse patient is going to be discharged today. Upon discharge to follow up at the [facility] at [facility]. Further management per hospital course. Thank you for the consultation and allowing me to participate in the care of your patient. Cardiology (Dr Osborn) 1. Wound adhesions -Stable -PE: There is a loop recorder, that is left of the midline and is protruding through the epidermis and is exposed to air. There is mild erythema around the loop recorder -Recommend bedside removal of the loop recorder. The case was discussed with Dr. Rueda, ER physician and he will remove the device at the bedside. -Once the device has been removed we recommend obtaining cultures from the pocket, obtaining blood cultures/ESR/CRP levels, and starting the patient on broad-spectrum antibiotics 2. CAD status post PCI to the LAD done in 2021 -stable -the patient denies cardiac chest pain, chest pressure, palpitations, or shortness of breath -the above-mentioned findings indicate clinical stability, as a result the patient will continue on metoprolol succinate 25 mg daily, aspirin 81 mg daily, clopidogrel 75 mg daily, ezetimibe 10 mg daily 3. HTN -stable -continue amlodipine 2.5 mg daily. Likely discharge within the next 24 hours. Jun 10, 2025 13:44 Procedure(s): PATIENT: CRISTAL NEVILLE MR#: [id number] : 1950 SEX: F AGE: 74 LOCATION: [facility] ORDER 1250 STATUS: REG ER REPORT#: [id number] SERVICE [id number] REASON: cp ORDERING PHYSICIAN: ALEXANDER RUEDA MD PROCEDURE: CXR1VW - CHEST 1VW EXAM: CR Chest, 1 View. CLINICAL HISTORY: cp COMPARISON: None provided. FINDINGS: LUNGS: The lungs show no infiltrate or other acute finding. Mild bibasilar airspace disease may reflect atelectasis. PLEURAL SPACES: No evidence of pleural effusion or pneumothorax. MEDIASTINUM: Rhythm monitoring device overlies the cardiac silhouette. The cardiomediastinal silhouette is within normal limits. Presumed prior coronary artery stenting. BONES: No aggressive appearing osseous lesion seen. IMPRESSION: 1. No acute cardiopulmonary findings. /[place] DICTATED BY: FIONA LYNCH Jr., MD DATE: 06/10/251419 ELECTRONICALLY SIGNED BY: FIONA LYNCH Jr., MD DATE: 06/10/251419 Assessment/Plan: ASSESSMENT: Wound dehiscence POA Dislodged and protruding loop recorder POA s/p removal CAD S/p coronary angioplasty in 2021 POA Hypertension POA Hypothyroidism POA Hypercholesterolemia POA Discharge Instructions: *Follow up with your primary care physician in 2 - 3 days after discharge. *Continue all medications as prescribed. Do not discontinue or change dosages without consulting your PCP. *Gradually resume normal activities as tolerated. *Continue a balanced diet . Reduce salt intake to help manage BP. *Seek immediate medical attention if you experience chest pain, SOB or severe headache. *Smoking cessation is strongly advised. Resources for quitting smoking are available upon request. Home Medications: Active Scripts Amoxicillin/Potassium Clav (Augmentin 500-125 Tablet) 500 Mg-125 Mg Tablet, 1 TAB PO BID for 7 Days, #14 TAB 0 Refills Prov:DAISY BELL MD 06/11/25 Doxycycline Hyclate (Doxycycline Hyclate) 100 Mg Tablet, 1 TAB PO BID for 7 Days, #14 TAB 0 Refills Prov:DAISY BELL MD 06/11/25 Reported Medications Tramadol Hcl (Tramadol HCl) 50 Mg Tablet, 50 MG PO AD for BACK PAIN, TAB 06/10/25 Aspirin (Aspirin EC) 81 Mg Tablet.dr, 81 MG PO DAILY, TAB 06/10/25 Dapagliflozin Propanediol (Farxiga) 10 Mg Tablet, 10 MG PO DAILY, TAB 06/10/25 Ezetimibe (Ezetimibe) 10 Mg Tablet, 10 MG PO DAILY, TAB 06/10/25 Amlodipine Besylate (Amlodipine Besylate) 2.5 Mg Tablet, 2.5 MG PO DAILY, TAB 06/10/25 Levothyroxine Sodium (Levothyroxine) 112 Mcg Capsule, 112 MCG PO DAILY, CAP 06/10/25 Pantoprazole Sodium (Pantoprazole Sodium) 40 Mg Tablet.dr, 40 MG PO DAILY, TAB 06/10/25 Clopidogrel Bisulfate (Clopidogrel) 75 Mg Tablet, 75 MG PO DAILY, TAB 06/10/25 Metoprolol Succinate (Metoprolol Succinate) 25 Mg Tab.er.24h, 25 MG PO DAILY, TAB 06/10/25 Time spent arranging discharge: 1-30 minutes ATTESTATION BY PHYSICIAN I have seen and examined the patient. I reviewed the documentation, medical decision making, and treatment plan as noted by the resident provider above. I agree with the findings and plan of care. Axel Baugh MD OBI,DAISY Benitez MD Jun 11, 2025 13:28
--- NOTE | 2025-06-11 13:42 | NUR ---
DCP: INITIAL ASSESSMENT Patient lives alone. She has no home services. Patient has cane, walker, and glucometer at home. She is able to complete ADLs independently and drives. Patient has no PCP at this time but is actively looking. Pharmacy is [facility] located on [facility]. Patient voiced no safety concerns regarding returning home and states she has no difficulty with housing or buying food. DCP is home. Addendum: 06/11/25 at 1345 by JUAN JOSE LEON Amended: Links added.
--- NOTE | 2025-06-11 15:15 | NUR ---
PATIENT IS DISCHARGED. EDUCATED PATIENT ON WOUND CARE AND ANTIBIOTIC REGIMEN. PATIENT TAKEN DOWNSTAIRS BY BACK CLOSER
== END 2025-06-11 15:15 | disposition home or self-care (01) ==
LOC: EDH 12:15 → EDHIP 14:16 → 4CH 15:30
PROVIDERS: ADMIT Internal Medicine; ATTEND Internal Medicine
DX: T81.30XA Disruption of wound, unspecified, initial encounter (principal); I25.10 Atherosclerotic heart disease of native coronary artery without angina pectoris; I10 Essential (primary) hypertension; E03.9 Hypothyroidism, unspecified; E78.00 Pure hypercholesterolemia, unspecified; I48.0 Paroxysmal atrial fibrillation; E11.9 Type 2 diabetes mellitus without complications; Z45.09 Encounter for adjustment and management of other cardiac device; Z88.5 Allergy status to narcotic agent; Z91.040 Latex allergy status; Z90.710 Acquired absence of both cervix and uterus; Z79.899 Other long term (current) drug therapy; Z95.5 Presence of coronary angioplasty implant and graft; Z98.82 Breast implant status
CPT/HCPCS: 96374; 99284; 84484; 80048 ×2; 85025; 85651; 87070; 87076; 86140; 36415 ×2; 71045; 93005; 85027; 87040 ×2; G0378 ×15; J0696